=== PATIENT | male | born 2005 | race African-American/Black ===

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

== ENCOUNTER 2024-06-03 09:29 | Emergency (ER) | payer BC, OTHER ==
[~2024-06-03] VITALS: Ht 170.2 cm; Wt 54.4 kg
[2024-06-03] MEDS ORDERED: CLIN300C12 PO (09:55)
[2024-06-03 10:04] VITALS: BP 119/79; TEMP 99.1; O2SAT 97
[2024-06-04] MEDS ORDERED: CEPH-570 PO (15:53)
[2024-06-04] MEDS ORDERED: DOXY100C2 PO (15:53)
== END 2024-06-03 10:04 | disposition home or self-care (01) ==
LOC: ER 09:36
DX: N48.22 Cellulitis of corpus cavernosum and penis (principal)

== ENCOUNTER 2024-06-04 15:25 | Emergency (ER) | payer BC, OTHER ==
[~2024-06-04] VITALS: Ht 170.2 cm; Wt 54.4 kg
[~2024-06-04 15:25] MED LIST: CLIN300C12 PO
[2024-06-04 15:33] VITALS: BP 120/56; TEMP 97.9; O2SAT 100
[2024-06-04] MEDS ORDERED: DOXY100C2 PO (15:53)
[2024-06-04] MEDS ORDERED: CEPH-570 PO (15:53)
[2024-06-04] MEDS ORDERED: DOXYCYCLINE HYCLATE (100 MG) 100 MG TABLET ONE (16:02)
[2024-06-04] MEDS ORDERED: CEPHALEXIN MONOHYDRATE 500 MG CAPSULE PO ONE (16:02)
[2024-06-04] MEDS: CEPHALEXIN MONOHYDRATE 500 MG CAPSULE PO ONE (16:04)
[2024-06-04] MEDS: DOXYCYCLINE HYCLATE (100 MG) 100 MG TABLET PO ONE (16:06)
== END 2024-06-04 16:15 | disposition home or self-care (01) ==
LOC: ER 15:33
DX: Z88.0 Allergy status to penicillin (principal); N48.22 Cellulitis of corpus cavernosum and penis